=== PATIENT | female | born 1980 | race African-American/Black ===

== ENCOUNTER 2017-11-01 16:58 | Emergency (ER) | payer OTHER ==
[~2017-11-01] VITALS: Ht 160 cm; Wt 63.5 kg
[2017-11-01] MEDS ORDERED: KEFLEX500 M1 PO (17:26)
[2017-11-01 17:58] VITALS: BP 148/105
== END 2017-11-01 17:59 | disposition home or self-care (01) ==
LOC: M.ERS 16:58
DX: S61.412A Laceration without foreign body of left hand, initial encounter (principal); F17.200 Nicotine dependence, unspecified, uncomplicated; W26.8XXA Contact with other sharp object(s), not elsewhere classified, initial encounter; Y93.89 Activity, other specified; Y92.89 Other specified places as the place of occurrence of the external cause; Y99.8 Other external cause status